=== PATIENT | male | born 1980 | race Asian ===

== ENCOUNTER 2017-02-21 10:55 | Emergency (ER) | payer MEDICAID, OTHER ==
[2017-02-21 11:12] VITALS: BP 137/106; PULSE 113; RESP 16; TEMP 97.7; O2SAT 95
--- NOTE | 2017-02-21 11:23 | UCPHY ---
H & P Patient Type: New Chief Complaint Nursing Narrative: c/o lower and mid back pain. states pain from injury in 2001. denies recent injury. Time Seen by Provider: 02/21/17 11:14 HPI/ROS: Chief Complaint: Back pain HPI: 36-year-old male who reports he had a back injury about 10 years ago presenting with chronic back pain. Patient states the pain has been persistent for the last several years. There is no new symptoms. No numbness or weakness. No difficulty with urination or having a bowel movement. He has seen a chiropractor this may given exercises. Does periodically take Tylenol for this as well. He has not seen a physician or a back specialist he reports. Patient presenting today with chronic symptoms and denies any new symptoms in the last several months. No fevers or chills. ROS: 10 point Review of Systems is negative except as noted in the HPI. PMH: Back injury Social History: No smoking, no alcohol, no recreational drug use Family History: non-contributory Physical Exam: Gen: Awake, Alert, No Distress HEENT: Nose: no rhinorrhea Eyes: PERRLA, EOMI Mouth: Moist mucosa Neck: Supple, no JVD Chest: nontender, lungs clear to auscultation Heart: S1, S2 normal, no murmur Abd: Soft, non-tender, no guarding Back: no CVA tenderness, no midline tenderness, he has bilateral paraspinal tenderness from the mid thoracic to the lumbar. No midline tenderness. Ext: no edema, non-tender Skin: no rash Neuro: CN II-XII intact, Sensation grossly intact, Strength 5/5 in bilateral upper and lower extremities, 2+ deep tendon reflexes, toes are downgoing - Medical/Surgical History Other PMH: back injury - Family History Significant Family History: No pertinent family hx - Social History Smoking Status: Current every day smoker Constitutional: Initial Vital Signs Temperature (C) 36.5 C 02/21/17 10:55 Heart Rate 113 H 02/21/17 10:55 Respiratory Rate 16 02/21/17 10:55 Blood Pressure 137/106 H 02/21/17 10:55 O2 Sat (%) 95 02/21/17 10:55 O2 Delivery Mode Room Air Allergies/Adverse Reactions: No Known Allergies Allergy (Unverified 02/23/11 13:54) Home Medications: Medication Instructions Recorded NO HOME MEDS 02/23/11 Medical Decision Making ED Course/Re-evaluation: 36-year-old male presenting with chronic back pain symptoms. There are no acute findings. He has not have any red flags concerning for cauda equina syndrome at this time. He is completely neurologically intact. He has only been seeing a chiropractor not a back specialist. I will refer him to primary care for further evaluation and referral. Departure - Departure Disposition: Home, Routine, Self-Care Clinical Impression: Back pain Condition: Good Instructions: Chronic Back Pain (ED) Additional Instructions: Follow up with primary care physician for further evaluation of her chronic back pain. Referrals: NONE *PRIMARY CARE P,. [Primary Care Provider] - As per Instructions Samanta Arzola MD [place] [place] - As per Instructions - PQRS PQRS Measurement: NA
== END 2017-02-21 11:30 | disposition home or self-care (01) ==
LOC: CED 10:55
DX: M54.9 Dorsalgia, unspecified (principal)
CPT/HCPCS: 99204-PO; G0463-PO

== ENCOUNTER → 2017-02-22 | Outpatient (CLI) | payer MEDICAID | LOC: CIMAGING 14:28 | PROVIDERS: ATTEND Family Medicine | DX: Z86.11 Personal history of tuberculosis (principal); M54.5 Low back pain; H11.32 Conjunctival hemorrhage, left eye | CPT/HCPCS: 71020-PO ==

== ENCOUNTER → 2017-03-29 | Outpatient (CLI) | payer MEDICAID | LOC: FIMAGING 06:58 | PROVIDERS: ATTEND Family Medicine | DX: M48.56XA Collapsed vertebra, not elsewhere classified, lumbar region, initial encounter for fracture (principal); M48.54XA Collapsed vertebra, not elsewhere classified, thoracic region, initial encounter for fracture; M54.2 Cervicalgia ==

== ENCOUNTER → 2018-02-13 | Outpatient (CLI) | payer MEDICAID | LOC: CIMAGING 09:29 | PROVIDERS: ATTEND Family Medicine | DX: J40 Bronchitis, not specified as acute or chronic (principal); J84.10 Pulmonary fibrosis, unspecified | CPT/HCPCS: 71046-PO ==

== ENCOUNTER → 2018-03-04 | Outpatient (CLI) | payer MEDICAID | LOC: CIMAGING 12:55 | DX: M54.5 Low back pain (principal); M25.551 Pain in right hip; M25.552 Pain in left hip; G89.29 Other chronic pain; S32.010S Wedge compression fracture of first lumbar vertebra, sequela; M21.951 Unspecified acquired deformity of right thigh; M21.952 Unspecified acquired deformity of left thigh | CPT/HCPCS: 72100-PO; 73521-PO ==

== ENCOUNTER → 2018-04-05 | Outpatient (CLI) | payer MEDICAID | LOC: FIMAGING 08:51 | DX: M25.851 Other specified joint disorders, right hip (principal); M25.852 Other specified joint disorders, left hip; S73.192A Other sprain of left hip, initial encounter ==